=== PATIENT | female | born 1980 | race American Indian/Alaskan Native ===

== ENCOUNTER 2021-08-18 21:44 | Emergency (ER) | payer SELFPAY ==
[2021-08-19] MEDS ORDERED: IBUPROFEN 600 MG TAB PO ONE (00:32)
[2021-08-19] MEDS ORDERED: ONDANSETRON 4 MG ODT TAB PO ONE (00:32)
[2021-08-19] MEDS ORDERED: HYDROcodone/ACETAMINOPHEN 5-325 MG TAB PO ONE (00:32)
[2021-08-19] MEDS ORDERED: AMOXICILLIN/K CLAV 875/125MG TAB PO ONE (00:32)
--- NOTE | 2021-08-19 00:37 | Emergency Department Report ---
ED General Adult HPI - General Chief complaint: Dental/Oral Stated complaint: TOOTHACHE Time Seen by Provider: 08/18/21 23:37 Source: patient Mode of arrival: Ambulatory Limitations: No Limitations - History of Present Illness Initial comments: Patient is a 40-year-old -[place] female with no past medical history presents to the ED with complaint of acute onset persistent severe right maxillary premolar molar toothache with swollen gums and pain for the last 4 days. Patient states that she has not been able to eat anything in the last 24 hours because of worsening dental pain. Patient denies fever, chills, nausea, vomiting, dizziness, syncope, sore throat, headache, chest pain or shortness of breath or traumatic injury. MD Complaint: Dental pain; swollen gums -: Sudden, days(s) (4) Location: mouth Radiation: non-radiation Severity scale (0 -10): 7 Quality: aching, sharp Consistency: constant Improves with: none Worsens with: eating Associated Symptoms: denies other symptoms. denies: confusion, chest pain, cough, diaphoresis, fever/chills, headaches, loss of appetite, malaise, rash, seizure, shortness of breath, syncope, other Treatments Prior to Arrival: none - Related Data Previous Rx's Medication Instructions Recorded Last Taken Type Docusate Sodium [Colace] 100 mg PO BID #30 capsule 06/02/13 Unknown Rx Ferrous Sulfate [Feosol 325mg] 325 mg PO BID #60 tablet 06/02/13 Unknown Rx Hydrocodone Bit/Acetaminophen 1 each PO Q6HR PRN #20 tablet 06/02/13 Unknown Rx [Lortab 5-500 Tablet] Meclizine [Antivert] 25 mg PO TID PRN #30 tablet 06/02/13 Unknown Rx Promethazine [Phenergan] 25 mg PO Q6H PRN #20 tablet 06/02/13 Unknown Rx Ketorolac [Toradol] 10 mg PO Q6H PRN #20 tablet 04/11/14 Unknown Rx Promethazine [Phenergan] 25 mg PO Q6H PRN #20 tablet 06/07/14 Unknown Rx Clindamycin [Clindamycin CAP] 300 mg PO Q8HR #60 capsule 08/19/21 Unknown Rx Ibuprofen [Motrin] 800 mg PO Q8HR PRN #30 tablet 08/19/21 Unknown Rx traMADoL [Ultram] 50 mg PO Q6HR PRN #12 tablet 08/19/21 Unknown Rx Allergies Allergy/AdvReac Type Severity Reaction Status Date / Time No Known Allergies Allergy Verified 06/02/13 12:56 ED Review of Systems ROS: Stated complaint: TOOTHACHE Other details as noted in HPI Constitutional: denies: chills, fever Eyes: denies: eye pain, eye discharge, vision change ENT: dental pain (Right mandibular premolar molar toothache with swelling painful gums). denies: ear pain, throat pain Respiratory: denies: cough, shortness of breath, wheezing Cardiovascular: denies: chest pain, palpitations Endocrine: no symptoms reported Gastrointestinal: denies: abdominal pain, nausea, vomiting, diarrhea Genitourinary: denies: urgency, dysuria, discharge Musculoskeletal: denies: back pain, joint swelling, arthralgia Skin: denies: rash, lesions Neurological: denies: headache, weakness, paresthesias Psychiatric: denies: anxiety, depression Hematological/Lymphatic: denies: easy bleeding, easy bruising ED Past Medical Hx - Past Medical History Previous Medical History?: No - Surgical History Past Surgical History?: No - Social History Smoking Status: Current Every Day Smoker Substance Use Type: None - Medications Home Medications: Home Medications Medication Instructions Recorded Confirmed Last Taken Type Docusate Sodium [Colace] 100 mg PO BID #30 capsule 06/02/13 Unknown Rx Ferrous Sulfate [Feosol 325mg] 325 mg PO BID #60 tablet 06/02/13 Unknown Rx Hydrocodone Bit/Acetaminophen 1 each PO Q6HR PRN #20 tablet 06/02/13 Unknown Rx [Lortab 5-500 Tablet] Meclizine [Antivert] 25 mg PO TID PRN #30 tablet 06/02/13 Unknown Rx Promethazine [Phenergan] 25 mg PO Q6H PRN #20 tablet 06/02/13 Unknown Rx Ketorolac [Toradol] 10 mg PO Q6H PRN #20 tablet 04/11/14 Unknown Rx Promethazine [Phenergan] 25 mg PO Q6H PRN #20 tablet 06/07/14 Unknown Rx Clindamycin [Clindamycin CAP] 300 mg PO Q8HR #60 capsule 08/19/21 Unknown Rx Ibuprofen [Motrin] 800 mg PO Q8HR PRN #30 tablet 08/19/21 Unknown Rx traMADoL [Ultram] 50 mg PO Q6HR PRN #12 tablet 08/19/21 Unknown Rx ED Physical Exam - General Limitations: No Limitations General appearance: alert, in no apparent distress - Head Head exam: Present: atraumatic, normocephalic, normal inspection - Eye Eye exam: Present: normal appearance, PERRL, EOMI Pupils: Present: normal accommodation - ENT ENT exam: Present: mucous membranes moist, TM's normal bilaterally, normal external ear exam, other (Swollen, severely tender right maxillary gingiva with severely tender right maxillary premolar and molar teeth) - Neck Neck exam: Present: normal inspection, full ROM. Absent: tenderness - Respiratory Respiratory exam: Present: normal lung sounds bilaterally. Absent: respiratory distress, wheezes, rales, rhonchi, chest wall tenderness, accessory muscle use, prolonged expiratory - Cardiovascular Cardiovascular Exam: Present: normal rhythm, tachycardia, normal heart sounds. Absent: systolic murmur, diastolic murmur, rubs, gallop - GI/Abdominal GI/Abdominal exam: Present: soft, normal bowel sounds. Absent: distended, tenderness, guarding, hyperactive bowel sounds, hypoactive bowel sounds, organomegaly - Extremities Exam Extremities exam: Present: normal inspection, full ROM, normal capillary refill - Back Exam Back exam: Present: normal inspection, full ROM. Absent: tenderness, CVA tenderness (R), CVA tenderness (L), muscle spasm, paraspinal tenderness, vertebral tenderness - Neurological Exam Neurological exam: Present: alert, oriented X3, CN II-XII intact, normal gait, reflexes normal - Psychiatric Psychiatric exam: Present: normal affect, normal mood - Skin Skin exam: Present: warm, dry, intact, normal color. Absent: rash ED Course Vital Signs 08/18/21 08/19/21 21:50 02:00 Temperature 98.6 F Pulse Rate 107 H 95 H Respiratory 18 17 Rate Blood Pressure 121/70 Blood Pressure 152/96 [Right] O2 Sat by Pulse 100 100 Oximetry ED Medical Decision Making - Medical Decision Making This is a 40-year-old -[place] female with no past medical history presents to the ED with complaint of acute onset persistent severe right maxillary premolar molar toothache with swollen gums and pain for the last 4 days. Patient states that she has not been able to eat anything in the last 24 hours because of worsening dental pain. In the ED, patient is alert and oriented x3 and is not in any distress but appears to be in pain, tachycardic and afebrile in triage. Patient was treated in the ED for pain and was given initial oral antibiotics for suspected dental abscess and gingivitis. On reevaluation, patient's pain is well controlled medication. Patient will discharge home on pain medications and antibiotics and advised to follow-up with a dentist at [facility] in 7 to 10 days for evaluation and treatment. Patient was advised return to the ED immediately if symptoms get worse. - Differential Diagnosis Dental abscess; dental caries; gingivitis Critical care attestation.: If time is entered above; I have spent that time in minutes in the direct care of this critically ill patient, excluding procedure time. ED Disposition Clinical Impression: Dental abscess, Chronic gingivitis, Dental caries Disposition: HOME / SELF CARE / HOMELESS Is pt being admited?: No Does the pt Need Aspirin: No Condition: Stable Instructions: Dental Abscess, [id number], Trench Mouth Additional Instructions: Take medication with food, drink plenty of fluids and follow-up with your dentist in 7 to 10 days for reevaluation. Return to the ED immediately if symptoms get worse. Prescriptions: Clindamycin [Clindamycin CAP] 300 mg PO Q8HR #60 capsule Ibuprofen [Motrin] 800 mg PO Q8HR PRN #30 tablet PRN Reason: Pain , Severe (7-10) traMADoL [Ultram] 50 mg PO Q6HR PRN #12 tablet PRN Reason: Pain Referrals: [facility] [Outside] - 7-10 days Time of Disposition: 00:37 Print Language: BULGARIAN
[2021-08-19 02:03] VITALS: BP 152/96
== END 2021-08-19 01:06 | disposition home or self-care (01) ==
LOC: ED 21:44
DX: K04.7 Periapical abscess without sinus (principal); K02.9 Dental caries, unspecified; K05.10 Chronic gingivitis, plaque induced; F17.200 Nicotine dependence, unspecified, uncomplicated; Z79.899 Other long term (current) drug therapy
CPT/HCPCS: 99282; J3490; Q0162